=== PATIENT | female | born 1980 | race Caucasian/White ===

== ENCOUNTER 2018-12-17 16:35 | Emergency (ER) | payer BC ==
[~2018-12-17] VITALS: Ht 157.5 cm; Wt 83.5 kg
== END 2018-12-17 17:28 | disposition home or self-care (01) ==
LOC: ER 16:35
DX: S01.80XA Unspecified open wound of other part of head, initial encounter (principal); L08.89 Other specified local infections of the skin and subcutaneous tissue; X58.XXXA Exposure to other specified factors, initial encounter; Y93.89 Activity, other specified; Y92.89 Other specified places as the place of occurrence of the external cause; Y99.8 Other external cause status